=== PATIENT | male | born 1960 | race Two or more races ===

== ENCOUNTER 2024-07-25 11:47 | Emergency (ER) | payer MEDICARE, MEDICAID ==
[~2024-07-25] VITALS: Ht 170.2 cm; Wt 68.1 kg
[2024-07-25 13:51] VITALS: BP 122/70; PULSE 71; RESP 22; O2SAT 95
[2024-07-25] MEDS ORDERED: TRAM-626 PO (14:33)
[2024-07-25 14:36] VITALS: TEMP 97.5
[2024-07-25] MEDS: ACETAMINOPHEN 500 MG TAB PO ONE (14:36)
== END 2024-07-25 14:50 | disposition home or self-care (01) ==
LOC: ER 11:47 → EDBD 11:47 → ER 14:49
DX: S42.031A Displaced fracture of lateral end of right clavicle, initial encounter for closed fracture (principal); I10 Essential (primary) hypertension; W18.09XA Striking against other object with subsequent fall, initial encounter; Y93.89 Activity, other specified; Y92.89 Other specified places as the place of occurrence of the external cause; Y99.8 Other external cause status
CPT/HCPCS: 73030